=== PATIENT | female | born 1995 | race Caucasian/White ===

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

== ENCOUNTER 2017-11-25 09:06 | Emergency (ER) | payer OTHER ==
--- NOTE | 2017-11-25 10:02 | EDPHY ---
H & P Smoking Status: Never smoked Time Seen by Provider: 11/25/17 09:35 HPI/ROS: CHIEF COMPLAINT: Flank pain, dysuria HISTORY OF PRESENT ILLNESS: 22-year-old female presents to the emergency department by private vehicle with her friend complaining of bilateral flank pain worse on the left than the right and dysuria. The patient states yesterday she woke up with dysuria, urgency or frequency with urination. She went to [facility] and was treated for urinary tract infection. She was given an IM injection of ceftriaxone and treated with oral Bactrim. She states this morning when she woke up she had severe flank pain. She was told that if she developed any back pain, vomiting or fever, she should return or go to the emergency room. The patient has no vomiting. She feels hungry. No fevers or chills. No pain in her chest or difficulty breathing. Some lower abdominal discomfort. Last menstrual period was 10 days to 2 weeks ago. Normal and on time. Denies . REVIEW OF SYSTEMS: Constitutional: No fever, no chills. Eyes: No double or blurry vision. ENT: No sore throat. Respiratory: No cough, no shortness of breath. Cardiac: No chest pain. Gastrointestinal: Abdominal pain as above. No vomiting or diarrhea. Genitourinary: No dysuria. Musculoskeletal: Bilateral flank pain as above. No neck pain. Skin: No rashes. Neurological: No headache. (Ibeth Brewstera Ayana) Past Medical/Surgical History: Urinary tract infections. No history of kidney stones or pyelonephritis in the past. (MarielleBarbara ahmadi) Social History: [employer] student (Soraya Brewsterrina Ayana) Physical Exam: General Appearance: Alert, no distress. Temperature 36.9 degrees. Nontoxic appearing. Eyes: Pupils equal and round. Extraocular motions are all intact. ENT: Mouth: Mucous membranes moist. Respiratory: No wheezing, rhonchi, or rales, lungs are clear to auscultation. Cardiovascular: Regular rate and rhythm. Gastrointestinal: Abdomen is soft. Mild tenderness with palpation in the suprapubic area. There is no masses, rebound or guarding noted. Bilateral CVA tenderness. Neurological: Alert and oriented x 3, cranial nerves II through XII grossly intact Skin: Warm and dry, no rashes. Musculoskeletal: Nontender to palpate along the cervical, thoracic or lumbar spine. Neck is supple. Extremities: Full range of motion and no peripheral edema. Psychiatric: Patient is oriented X 3, there is no agitation. (Barbara Brewster) Constitutional: Initial Vital Signs Temperature (C) 36.9 C 11/25/17 09:09 Heart Rate 69 11/25/17 09:09 Respiratory Rate 18 11/25/17 09:09 Blood Pressure 135/106 H 11/25/17 09:09 O2 Sat (%) 98 11/25/17 09:09 O2 Delivery Mode Room Air Allergies/Adverse Reactions: No Known Allergies Allergy (Unverified 11/25/17 09:13) Home Medications: Medication Instructions Recorded Control 11/04/16 Cephalexin [Keflex] 500 mg PO QID #40 cap 11/25/17 Medical Decision Making ED Course/Re-evaluation: 22-year-old female presents to the emergency department with urinary frequency, urgency and dysuria. She also has bilateral flank pain. She was seen in urgent care yesterday was given IM shot of ceftriaxone and started on oral Bactrim. I explained to the patient that I was concerned about pyelonephritis. She is nontoxic-appearing. She is afebrile. No vomiting. She feels hungry. She will stop the Bactrim that was prescribed and take Keflex 4 times daily for 10 days. She had a urine culture at [facility] and she was encouraged to call tomorrow to make sure that she is on the correct antibiotic. She was given strict instructions return to the emergency department if she developed vomiting, fever, or if she felt worse in any way. Patient's blood pressure was elevated on exam today at 130/95. I encouraged close follow-up and will [facility]he[facility] or with primary care provider. The case was discussed with Dr. Ashley Thomas, secondary supervising physician, who did not directly evaluate the patient but agrees with treatment and plan. ( Barbara Brewster) The patient was evaluated and managed by the physician branch assistant. I have reviewed this chart and I agree with the findings and plan of care as documented , as indicated by my signature. I am the secondary supervising physician. ( Ashley Thomas) Differential Diagnosis: Including but not limited to kidney stone, pyelonephritis, urinary tract infection (Barbara Brewster) Departure - Departure Disposition: Home, Routine, Self-Care Clinical Impression: Pyelonephritis Condition: Fair Instructions: Cephalexin (By mouth), Kidney Infection (ED) Additional Instructions: Stop Bactrim. Keflex as directed for 10 days. Call Urgent Care tomorrow for the results of your urine culture. Return if you develop fever, vomiting, or if you feel worse in any way. Your blood pressure was high today on exam. Please check with a primary care provider or go to [facility] to have this rechecked this week. Referrals: Kumar Olmstead MD [[facility] Primary Care Provider] - As per Instructions (primary care provider labor relations supervisor ) Prescriptions: Cephalexin [Keflex] 500 mg PO QID #40 cap
[2017-11-25 10:07] VITALS: BP 130/95
== END 2017-11-25 10:27 | disposition home or self-care (01) ==
DX: N10 Acute pyelonephritis (principal)

== ENCOUNTER 2017-11-29 10:14 | Emergency (ER) | payer OTHER ==
[2017-11-29] MEDS ORDERED: NS 1,000 ML IV ONE ×2 (10:41→11:38)
[2017-11-29] MEDS ORDERED: ONDANSETRON 4 MG/2 ML VIAL IVP ONE (10:41)
--- NOTE | 2017-11-29 10:41 | EDPHY ---
General Time Seen by Provider: 11/29/17 10:34 Narrative: CHIEF COMPLAINT: Flank pain HISTORY OF PRESENT ILLNESS: Patient presents by private vehicle with complaints of bilateral flank pain. This started on November 24 as suprapubic discomfort described as "just a UTI at ." She was seen here on the diagnosed with urinary tract infection, prescribed Keflex. She has been taking this as prescribed. Over the past few days she has had increasing discomfort that is now into both flanks. It is worse on the right than the left but present bilaterally. Worse with movement lying on her sides. Minimal improved with walking. She has some nausea but no vomiting. No chest pain. No shortness of breath. No cough. No fever. She has mild generalized abdominal discomfort. No vaginal discharge or pain. She does have some spotting. She was seen at [facility] at with reportedly normal laboratory studies on Sunday. She was instructed to come here as her pain has increased. Currently rated as severe, 8/10 pain. No other associated complaints or modifying factors. REVIEW OF SYSTEMS: 10 systems were reviewed and negative with the exception of the elements mentioned in the history of present illness. PCP: [facility] at SPECIALISTS: None PAST MEDICAL HISTORY: Uncomplicated. Oral contraceptive use. LMP 2 weeks ago and possibly starting today. PAST SURGICAL HISTORY: No surgical history SOCIAL HISTORY: Never smoker. Occasional alcohol. No drug use. [employer] student. Originally from [place]. FAMILY HISTORY: Noncontributory EXAMINATION: General Appearance: Alert, no distress. Conversing in full sentences. Nontoxic and well-appearing. Head: normocephalic, atraumatic Eyes: Pupils equal and round, no conjunctival pallor or injection ENT, Mouth: Mucous membranes moist Neck: Normal inspection, supple, non-tender Respiratory: Lungs are clear to auscultation Cardiovascular: Regular rate and rhythm. No murmur Gastrointestinal: Abdomen is soft and nondistended. Mild tenderness in right upper quadrant. No tenderness in the left upper quadrant or lower quadrants. There is moderate tenderness bilateral CVA. No tympany. No rigidity. No guarding. Bowel sounds are present all 4 quadrants. Back: non-tender, no bony abnormalities Neurological: A&O, nonfocal, normal gait Skin: Warm and dry, no rash Extremities: Nontender, no pedal edema Psychiatric: Mood and affect normal DIFFERENTIAL DIAGNOSES: Including but not limited to pyelonephritis, renal colic, ureteral stone, cholecystitis, cholelithiasis, colitis, appendicitis MDM: 10:40 a.m. Bilateral flank pain that has been increasing since November 24 with recent diagnosis of urinary tract infection. She was seen here on the and diagnosed with UTI with urinalysis only, no urine culture sent. Her abdominal exam does reveal CVA tenderness but no peritonitis. Vital signs are within normal limits and she does not meet SIRS criteria. I have ordered IV placement for laboratory studies, IV fluid and pain medication. We will recheck her urinalysis. 11:15 a.m. Urinalysis reveals microscopic hematuria with likely contaminate of epithelials. CBC unremarkable. Remainder laboratory studies pending 11:30 a.m. CBC, chemistry, lipase and liver function tests are all within normal limits. I have re-evaluated the patient. She still has complaints of significant pain. I have re-evaluated her and will order CT scan to evaluate further. I have also ordered Toradol. 1:15 p.m. Notified by radiologist Dr. Ely Martinez. We discussed the CT findings that do include hydroureter and hydronephrosis. This does clinically correlate with the patient's history and exam. 1:25 p.m. Patient re-evaluated. I discussed the CT scan findings with her. I discussed the negative laboratory studies negative for analysis. She reports that she is relieved to hear this. We discussed that this is likely congenital possibly acquired. We discussed the need for outpatient Urology follow-up. We discussed short course of pain medication as needed with continued light activity. We discussed ED precautions for worsening pain, fever, nausea, vomiting or difficulty urinating. I have answered all her questions. She is comfortable this plan. Discharged home stable condition. SUPERVISION: Patient was independently examined, but I discussed the case with my secondary supervising physician Dr. Salinas CONSULTATION: None. Outpatient urology referral - Diagnostics Imaging Results: Imaging Impressions Abdomen/Pelvis CT 11/29/17 11:37 Impression: Bilateral hydroureter, worse on the right. These ureters appear to taper at the UVJ where there may be long-standing fibrosis or scarring. There is associated mild to moderate hydronephrosis on the right and mild hydronephrosis on the left. No stones or evidence of duplicated collecting system. Findings and recommendations discussed with Ludin PAC Herrera at 1300 hour, 12/2017. Imaging: Discussed imaging studies w/ laminate floor installer Radiologist, I viewed and interpreted images myself - History History Review: I reviewed the patient's medical records Smoking Status: Never smoked - Objective Vital Signs: Initial Vital Signs Temperature (C) 97.5 F 11/29/17 10:19 Heart Rate 90 11/29/17 10:19 Respiratory Rate 16 11/29/17 10:19 Blood Pressure 125/82 H 11/29/17 10:19 O2 Sat (%) 98 11/29/17 10:19 O2 Delivery Mode Nasal Cannula O2 (L/minute) 2 Allergies/Adverse Reactions: No Known Allergies Allergy (Verified 11/29/17 10:19) Home Medications: Medication Instructions Recorded Control 11/04/16 Cephalexin [Keflex] 500 mg PO QID #40 cap 11/25/17 Cyclobenzaprine [Cyclobenzaprine 5 mg PO TID PRN #12 tab 11/29/17 HCl] oxyCODONE HCL/ACETAMINOPHEN 1 each PO Q4-6PRN PRN #9 tablet 11/29/17 [Percocet 5-325 mg Tablet] Laboratory Results: Laboratory Results 11/29/17 10:50 11/29/17 10:50 11/29/17 11/29/17 11/29/17 10:50 10:50 10:50 WBC 6.02 10^3/uL 10^3/uL (3.80-9.50) RBC 4.83 10^6/uL 10^6/uL (4.18-5.33) Hgb 13.8 g/dL g/dL (12.6-16.3) Hct 41.2 % % (38.0-47.0) MCV 85.3 fL fL (81.5-99.8) MCH 28.6 pg pg (27.9-34.1) MCHC 33.5 g/dL g/dL (32.4-36.7) RDW 13.2 % % (11.5-15.2) Plt Count 201 10^3/uL 10^3/uL (150-400) MPV 11.5 fL fL (8.7-11.7) Neut % (Auto) 44.3 % % (39.3-74.2) Lymph % (Auto) 40.5 % % (15.0-45.0) [place] % (Auto) 8.8 % % (4.5-13.0) Eos % (Auto) 5.1 % % (0.6-7.6) Baso % (Auto) 0.8 % % (0.3-1.7) Nucleat RBC Rel Count 0.0 % % (0.0-0.2) Absolute Neuts (auto) 2.66 10^3/uL 10^3/uL (1.70-6.50) Absolute Lymphs (auto) 2.44 10^3/uL 10^3/uL (1.00-3.00) Absolute Monos (auto) 0.53 10^3/uL 10^3/uL (0.30-0.80) Absolute Eos (auto) 0.31 10^3/uL 10^3/uL (0.03-0.40) Absolute Basos (auto) 0.05 10^3/uL 10^3/uL (0.02-0.10) Absolute Nucleated RBC 0.00 10^3/uL 10^3/uL (0-0.01) Immature Gran % 0.5 % % (0.0-1.1) Immature Gran # 0.03 10^3/uL 10^3/uL (0.00-0.10) Sodium 138 mEq/L mEq/L (135-145) Potassium 4.7 mEq/L mEq/L (3.3-5.0) Chloride 107 mEq/L mEq/L (97-110) Carbon Dioxide 22 mEq/l mEq/l (22-31) Anion Gap 9 mEq/L mEq/L (6-14) BUN 11 mg/dL mg/dL (7-23) Creatinine 0.6 mg/dL mg/dL (0.6-1.0) Estimated GFR > 60 Glucose 87 mg/dL mg/dL (70-100) Calcium 9.3 mg/dL mg/dL (8.5-10.4) Total Bilirubin 0.4 mg/dL mg/dL (0.1-1.4) Conjugated Bilirubin 0.2 mg/dL mg/dL (0.0-0.5) Unconjugated Bilirubin 0.2 mg/dL mg/dL (0.0-1.1) AST 32 IU/L IU/L (14-46) ALT 32 IU/L IU/L (9-52) Alkaline Phosphatase 53 IU/L IU/L (38-126) Total Protein 7.5 g/dL g/dL (6.3-8.2) Albumin 4.0 g/dL g/dL (3.5-5.0) Lipase 108 IU/L IU/L (23-300) Beta HCG, Qual NEGATIVE Urine Color Urine Appearance Urine pH Ur Specific Counce Urine Protein Urine Ketones Urine Blood Urine Nitrate Urine Bilirubin Urine Urobilinogen Ur Leukocyte Esterase Urine RBC Urine WBC Ur Epithelial Cells Urine Mucus Urine Glucose 11/29/17 10:38 WBC RBC Hgb Hct MCV MCH MCHC RDW Plt Count MPV Neut % (Auto) Lymph % (Auto) [place] % (Auto) Eos % (Auto) Baso % (Auto) Nucleat RBC Rel Count Absolute Neuts (auto) Absolute Lymphs (auto) Absolute Monos (auto) Absolute Eos (auto) Absolute Basos (auto) Absolute Nucleated RBC Immature Gran % Immature Gran # Sodium Potassium Chloride Carbon Dioxide Anion Gap BUN Creatinine Estimated GFR Glucose Calcium Total Bilirubin Conjugated Bilirubin Unconjugated Bilirubin AST ALT Alkaline Phosphatase Total Protein Albumin Lipase Beta HCG, Qual Urine Color YELLOW Urine Appearance HAZY Urine pH 5.5 (5.0-7.5) Ur Specific Counce 1.025 (1.002-1.030) Urine Protein NEGATIVE (NEGATIVE) Urine Ketones NEGATIVE (NEGATIVE) Urine Blood 3+ H (NEGATIVE) Urine Nitrate NEGATIVE (NEGATIVE) Urine Bilirubin NEGATIVE (NEGATIVE) Urine Urobilinogen 0.2 EU EU (0.2-1.0) Ur Leukocyte Esterase NEGATIVE (NEGATIVE) Urine RBC 50-182 /hpf H /hpf (0-3) Urine WBC NONE SEEN /hpf /hpf (0-3) Ur Epithelial Cells 2+ /lpf H /lpf (NONE-1+) Urine Mucus 2+ /lpf H /lpf (NONE-1+) Urine Glucose NEGATIVE (NEGATIVE) Medications Given: Discontinued Medications Sodium Chloride (Ns) 1,000 mls @ 0 mls/hr IV EDNOW ONE; Wide Open PRN Reason: Protocol Stop: 11/29/17 10:42 Last Admin: 11/29/17 10:57 Dose: 1,000 mls Sodium Chloride (Ns) 1,000 mls @ 0 mls/hr IV EDNOW ONE; Wide Open PRN Reason: Protocol Stop: 11/29/17 11:39 Last Admin: 11/29/17 11:43 Dose: 1,000 mls Ketorolac Tromethamine (Toradol) 30 mg IVP EDNOW ONE Stop: 11/29/17 11:39 Last Admin: 11/29/17 11:43 Dose: 30 mg Morphine Sulfate (Morphine) 4 mg IVP EDNOW ONE Stop: 11/29/17 10:42 Last Admin: 11/29/17 10:58 Dose: 4 mg Ondansetron HCl (Zofran) 4 mg IVP EDNOW ONE Stop: 11/29/17 10:42 Last Admin: 11/29/17 10:58 Dose: 4 mg Departure - Departure Disposition: Home, Routine, Self-Care Clinical Impression: Hydroureter on left, Hydroureter, right Hydronephrosis Qualifiers: Hydronephrosis type: with other ureteral stricture Qualified Code(s): N13.1 - Hydronephrosis with ureteral stricture, not elsewhere classified Condition: Good Instructions: Hydronephrosis (ED) Additional Instructions: 1. Contact Urology for outpatient workup and further care 2. Pain medication and muscle relaxant as needed for symptom control 3. ED precautions for worsening pain, difficulty urinating, fever, chills Referrals: Yvette Braga MD [Medical Doctor] - As per Instructions Stand Alone Forms: School Excuse Prescriptions: Cyclobenzaprine [Cyclobenzaprine HCl] 5 mg PO TID PRN #12 tab PRN Reason: muscle spasm oxyCODONE HCL/ACETAMINOPHEN [Percocet 5-325 mg Tablet] 1 each PO Q4-6PRN PRN #9 tablet PRN Reason: Pain, Breakthrough
[2017-11-29 11:04] LABS: PLATELET COUNT 201 10^3/uL (150-400)
[2017-11-29] MEDS ORDERED: KETOROLAC 30 MG/1 ML SDV IVP ONE (11:38)
[2017-11-29 13:43] VITALS: BP 114/88
== END 2017-11-29 13:42 | disposition home or self-care (01) ==
LOC: SUPCPDRO 10:14
DX: N13.1 Hydronephrosis with ureteral stricture, not elsewhere classified (principal); E86.9 Volume depletion, unspecified; Z87.440 Personal history of urinary (tract) infections
CPT/HCPCS: 96374; J1885; J2270; J2405

== ENCOUNTER → 2018-01-01 | Outpatient (CLI) | payer OTHER ==
[~2018-01-01] MED LIST: FUROSEMIDE 40 MG/4 ML VIAL ONE
== END ==
LOC: FIMAGING 09:39
PROVIDERS: ATTEND Physician Assistant Medical
DX: N13.4 Hydroureter (principal)
CPT/HCPCS: J1940